=== PATIENT | female | born 1960 | race Caucasian/White ===

== ENCOUNTER 2024-08-26 07:42 | Day surgery (SDC) | payer MEDICARE, OTHER ==
[2024-08-22 16:18] VITALS: BMI 28.8
[~2024-08-26 07:42] MED LIST: LIDOCAINE 1% (10MG/ML) FOR IV START INTRADERMA PRN
[2024-08-26 08:03] VITALS: TEMP 96.4
[2024-08-26] MEDS: IV FLUID CONTINUATION 1,000 ML IV ONE (08:11)
[2024-08-26] MEDS: LACTATED RINGERS 1,000 ML IV SCH (08:11)
[2024-08-26] MEDS ORDERED: LIDOCAINE 2% (PF) 20 MG/ML 5 ML VIAL ONE (09:17)
[2024-08-26] MEDS ORDERED: ONDANSETRON 4 MG/2 ML VIAL ONE (09:17)
[2024-08-26] MEDS ORDERED: PROPOFOL 10 MG/ML 20 ML VIAL IV ONE (09:17)
--- NOTE | 2024-08-26 09:36 | P.PCN ---
Date of Procedure: 08/26/24 Procedure(s) Performed: Brief history: Patient is a pleasant 64-year-old white female scheduled for an elective upper endoscopy as well as colonoscopy as a part of evaluation of intermittent episodes of epigastric pain associated with nausea vomiting and change in bowel habits for the last several years duration Procedure performed: Esophagogastroduodenoscopy with biopsy Colonoscopy Preoperative diagnosis: Abdominal pain/nausea vomiting Change in bowel habits Anesthesia: MAC Procedure: After informed consent was obtained from the patient was brought into the endoscopy unit and IV sedation was administered by anesthesia under continuous monitoring. Initially upper endoscopy was done. The Olympus GF 160 video endoscope was inserted inserted into the mouth and esophagus intubated without any difficulty and was gradually advanced into the stomach and duodenum and carefully examined. The bulb and second part of the duodenum appeared normal. The scope was then withdrawn into the stomach adequately insufflated with air and upon careful examination the antrum and mild diffuse gastritis and biopsies were done from this area. Mucosa of the body, cardia and fundus appeared normal. The scope was then withdrawn into the esophagus. Small hiatal hernia noted. The GE junction was located at 40 cm to the incisors. It appeared regular with no erythema erosions or ulcerations. Rest of the esophagus appeared normal. Patient tolerated the procedure well. At this time the patient continued to remain sedation. Initial digital rectal examination was normal. Olympus CF 160 video colonoscope was then inserted into the rectum and gradually advanced to the cecum without any difficulty. Careful examination was performed as the scope was gradually being withdrawn. The prep was excellent. The cecum, ascending colon, transverse colon, descending colon, sigmoid colon and rectum appeared normal. Retroflexion was performed in the rectum and no lesions were noted. Patient tolerated the procedure well. Impression: 1. Upper endoscopy revealed mild antral gastritis and a small hiatal hernia 2. Colonoscopy was within normal limits with no evidence of colorectal neoplasia Recommendations: Findings of this examination were discussed with the patient as well as her family. She was advised to follow-up with the biopsy results. Continue with ome Pepcid 20 mg twice daily and follow antireflux measures GERD follow-up in office in 2 weeks. Recommend repeat screening colonoscopy in 10 years.
[2024-08-26 10:11] VITALS: BP 132/66; PULSE 68; RESP 14
== END 2024-08-26 10:18 | disposition home or self-care (01) ==
LOC: ORWHC2ENDO 07:42
PROVIDERS: ATTEND Internal Medicine Gastroenterology
DX: K29.50 Unspecified chronic gastritis without bleeding (principal); K44.9 Diaphragmatic hernia without obstruction or gangrene; K21.00 Gastro-esophageal reflux disease with esophagitis, without bleeding; I10 Essential (primary) hypertension; E78.5 Hyperlipidemia, unspecified; E07.9 Disorder of thyroid, unspecified; F17.200 Nicotine dependence, unspecified, uncomplicated; Z91.040 Latex allergy status; Z88.5 Allergy status to narcotic agent; Z79.890 Hormone replacement therapy; Z79.899 Other long term (current) drug therapy
CPT/HCPCS: 45378; 43239; J2405; J2704; J2003; 88305